=== PATIENT | male | born 1980 | race Caucasian/White ===

== ENCOUNTER 2022-04-14 02:45 | Emergency (ER) | payer SELFPAY ==
[2022-04-14 03:11] VITALS: BP 141/78; PULSE 98
== END 2022-04-14 04:05 | disposition home or self-care (01) ==
LOC: FB.ED 02:45
DX: G44.40 Drug-induced headache, not elsewhere classified, not intractable (principal); E86.0 Dehydration; F15.93 Other stimulant use, unspecified with withdrawal
CPT/HCPCS: 81001; 99284